=== PATIENT | female | born 1975 | race African-American/Black ===

== ENCOUNTER 2017-03-11 16:58 | Emergency (ER) | payer OTHER ==
--- NOTE | 2017-03-11 17:08 | PDOC ---
Rapid Medical Evaluation Time Seen by Provider: 03/11/17 17:06 Medical Evaluation: Allergies Allergy/AdvReac Type Severity Reaction Status Date / Time No Known Drug Allergies Allergy Verified 01/03/14 11:34 03/11/17 17:06 I have performed a brief in-person evaluation of this patient. The patient presents with a chief complaint of: with vaginal bleeding Pertinent physical exam findings: [employer]: . I have ordered the following: cbc, bmp, T&S, Bhcg, ua, urine cx, tvus The patient will proceed to the ED for further evaluation. Discharge Disposition - Diagnosis Vaginal bleeding affecting early - Referrals - Patient Instructions - Post Discharge Activity
[2017-03-11 17:22] VITALS: BP 169/103; PULSE 76; TEMP 98.1; BMI 30.6
[2017-03-11 17:54] LABS: URINE APPEARANCE SLCLOUDY; URINE BILIRUBIN NEGATIVE (NEGATIVE); URINE BLOOD 3+ (NEGATIVE); URINE COLOR YELLOW; URINE GLUCOSE (UA) NEGATIVE (NEGATIVE); URINE KETONE NEGATIVE (NEGATIVE); URINE LEUK ESTERASE NEGATIVE (NEGATIVE); URINE NITRITE NEGATIVE (NEGATIVE); URINE PROTEIN NEGATIVE (NEGATIVE); URINE UROBILINOGEN NEGATIVE mg/dL (0.2-1.0)
[2017-03-11 18:25] LABS: URINE MUCUS FEW; URINE RBC 386 /hpf (0-3); URINE WBC 1 /hpf (3-5)
[2017-03-11 19:47] LABS: BASO % 0.3 % (0-2.0); EOS # 0.1 # (0-4.5); EOS % 1.1 % (0-4.5); LYMPH # 2.6 (8-40); MCH 23.8 pg (25.7-33.7); MCHC 32.3 g/dl (32.0-36.0); MEAN CELL VOLUME 73.8 fl (80-96); MEAN PLT VOLUME 8.5 fl (7.5-11.1); MONO # 0.7 # (3.8-10.2); NEUT # 7.2 # (42.8-82.8); NEUT % 67.9 % (42.8-82.8); PLATELET COUNT 360 K/MM3 (134-434); RDW 15.1 % (11.6-15.6); WHITE BLOOD COUNT 10.6 K/mm3 (4.0-10.0)
[2017-03-11 20:04] LABS: URINE LEUK ESTERASE Negative (NEGATIVE)
--- NOTE | 2017-03-11 20:10 | PDOC ---
History of Present Illness - General History Source: Patient, Old Records Exam Limitations: No Limitations - History of Present Illness Initial Comments: 03/11/17 20:25 The patient is a 42 year old female who is currently 4 weeks , A2, with a significant past medical history of HTN and asthma, who presents to the emergency department with vaginal bleeding onset today and abdominal cramping since yesterday. She states that she had an ultrasound done 2 days ago which did not show anything because she might be too early. She reports that this is a wanted as she got her IUD removed 2 months ago. She reports that she noticed the vaginal bleeding when she went to use the bathroom, wiped and saw the blood on the toiler paper. The patient denies chest pain, shortness of breath, headache and dizziness. Denies fever, chills, nausea, vomit, diarrhea and constipation. Denies dysuria, frequency, urgency and hematuria. LMP: 02/06/2017 Allergies: None Past surgical history: None reported Social history: No alcohol, tobacco or drug use reported <Jesus Maurice - Last Filed: 03/11/17 21:05> <Lakhwinder Crow - Last Filed: 03/12/17 01:40> - General Chief Complaint: Vaginal Bleeding Stated Complaint: VAGINAL BLEEDING (4WKS ) Time Seen by Provider: 03/11/17 17:06 Past History <Jesus Maurice - Last Filed: 03/11/17 21:05> - Past Medical History Anemia: No Asthma: Yes Cancer: No Cardiac Disorders: No CVA: No COPD: No CHF: No DVT: No Dementia: No Diabetes: No GI Disorders: No Disorders: No HTN: Yes Hypercholesterolemia: No Liver Disease: No Seizures: No Thyroid Disease: No - Surgical History Abdominal Surgery: No Appendectomy: No Cardiac Surgery: No Cholecystectomy: No Lung Surgery: No Neurologic Surgery: No Orthopedic Surgery: No - Reproductive History Is Patient Now?: Yes (#): 6 Para: 3 Therapeutic (s) & number: (2) Spontaneous : 0 - Suicide/Smoking/Psychosocial Hx Smoking History: Never smoked Have you smoked in the past 12 months: No Information on smoking cessation initiated: No Hx Alcohol Use: No Drug/Substance Use Hx: No Substance Use Type: None Hx Substance Use Treatment: No <Lakhwinder Crow - Last Filed: 03/12/17 01:40> - Past Medical History Allergies/Adverse Reactions: Allergies Allergy/AdvReac Type Severity Reaction Status Date / Time No Known Drug Allergies Allergy Verified 03/11/17 17:18 Home Medications: Ambulatory Orders Metoprolol Succinate 50 mg PO DAILY 03/11/17 Vit 93/Iron Fum/Folic [ Formula Tablet] 1 each PO DAILY Review of Systems - Review of Systems Able to Perform ROS?: Yes Comments:: 03/11/17 20:25 Constitutional: No recent illness; no fever ENT: No sore throat Cardiovascular: No palpitations; no chest pain Pulmonary: No cough; no trouble breathing Gastrointestinal: (+) Abdominal cramping. No nausea; no vomiting; no diarrhea Genitourinary: (+) Vaginal bleeding. No urinary problems; no hematuria Skin: No rash Lymph system: No swollen glands Musculoskeletal: No joint swelling Neurological: No weakness; oo numbness; No Headache; no vertigo; no lightheadedness Psychiatric:No anxiety; no depression ROS: A complete review of 10 out of 10 review of systems is taken and is negative apart from what is previously mentioned below and in the HPI. <Jesus Maurice - Last Filed: 03/11/17 21:05> *Physical Exam - Vital Signs Last Vital Signs Temp Pulse Resp BP Pulse Ox 98.1 F 76 20 169/103 100 03/11/17 17:18 03/11/17 17:18 03/11/17 17:18 03/11/17 17:18 03/11/17 17:18 - Physical Exam Comments: 03/11/17 20:25 Vitals: Triage vital signs reviewed General Appearance: No acute distress, well nourished, well developed Head: Atraumatic Neck: Supple; No nuchal rigidity Chest Wall: Nontender Cardiac: Regular rate and rhythm, no murmurs, no rubs, no gallops Lungs: Clear to auscultation bilateral, good air movement bilaterally Abdomen: Soft, nondistended, normal bowel sounds, nontender to palpation Genitourinary: Rectal: Exam deferred Extremities: Full range of motion to all extremities, no cyanosis, clubbing, or edema Skin: Warm and dry, no rashes or lesions, no rash, no petechiae Neuro: AOX3; Cranial Nerves 2-12 grossly intact, Strength intact to all extremities, Sensation intact to all extremities. Psych: Normal mood, normal affect Pelvic Exam: Os is closed and there is no adnexal tenderness. <Jesus Maurice - Last Filed: 03/11/17 21:05> - Vital Signs Last Vital Signs Temp Pulse Resp BP Pulse Ox 98.1 F 76 20 169/103 100 03/11/17 17:18 03/11/17 17:18 03/11/17 17:18 03/11/17 17:18 03/11/17 17:18 <Lakhwinder Crow - Last Filed: 03/12/17 01:40> ED Treatment Course - LABORATORY CBC & Chemistry Diagram: 03/11/17 18:50 03/11/17 18:50 - ADDITIONAL ORDERS Additional order review: Laboratory Results 03/11/17 17:30 Urine Color Yellow Urine Appearance Slcloudy Urine pH 6.0 Ur Specific [place] 1.025 Urine Protein Negative Urine Glucose (UA) Negative Urine Ketones Negative Urine Blood 3+ H Urine Nitrite Negative Urine Bilirubin Negative Urine Urobilinogen Negative Ur Leukocyte Esterase Negative Urine WBC (Auto) 1 Urine RBC (Auto) 386 Ur Epithelial Cells Rare Urine Mucus Few 03/11/17 18:50 RBC 5.24 H MCV 73.8 L MCHC 32.3 RDW 15.1 MPV 8.5 Neutrophils % 67.9 Lymphocytes % 24.4 Monocytes % 6.3 Eosinophils % 1.1 Basophils % 0.3 <Jesus Maurice - Last Filed: 03/11/17 21:05> - LABORATORY CBC & Chemistry Diagram: 03/11/17 18:50 03/11/17 18:50 - ADDITIONAL ORDERS Additional order review: Laboratory Results 03/11/17 17:30 Urine Color Yellow Urine Appearance Slcloudy Urine pH 6.0 Ur Specific [place] 1.025 Urine Protein Negative Urine Glucose (UA) Negative Urine Ketones Negative Urine Blood 3+ H Urine Nitrite Negative Urine Bilirubin Negative Urine Urobilinogen Negative Ur Leukocyte Esterase Negative Urine WBC (Auto) 1 Urine RBC (Auto) 386 Ur Epithelial Cells Rare Urine Mucus Few 03/11/17 18:50 RBC 5.24 H MCV 73.8 L MCHC 32.3 RDW 15.1 MPV 8.5 Neutrophils % 67.9 Lymphocytes % 24.4 Monocytes % 6.3 Eosinophils % 1.1 Basophils % 0.3 <Lakhwinder Crow - Last Filed: 03/12/17 01:40> Medical Decision Making - Medical Decision Making 03/11/17 20:44 Well appearing, no apparent distress approximately 4-5 weeks by dates. Vaginal spotting today no abdominal pain. We'll check labs ultrasound type and screen and beta and reassess Empty uterus on transvaginal ultrasound. Serum beta hCG 20 most likely diagnosis this time is miscarriage. Patient will follow-up with her [facility] [employer] [employer] next week to ensure beta goes completely to 0. Her Rh status is positive. No indication for Hank. Very strict ectopic return instructions discussed with patient. <Lakhwinder Crow - Last Filed: 03/12/17 01:40> *DC/Admit/Observation/Transfer - Attestations Scribe Attestion: 03/11/17 20:26 Documentation prepared by Jesus Maurice, acting as medical editor for Lakhwinder Crow MD <Jesus Maurice - Last Filed: 03/11/17 21:05> <Lakhwinder Crow - Last Filed: 03/12/17 01:40> Diagnosis at time of Disposition: Vaginal bleeding affecting early - Referrals Referrals: Anthony Thompson MD [Primary Care Provider] - - Patient Instructions Printed Discharge Instructions: Miscarriage Additional Instructions: Return to ED for any severe pain heavy vaginal bleeding or for any concerns follow-up with your [facility] [employer] [facility] next week. - Post Discharge Activity
[2017-03-11 20:17] LABS: ANION GAP 6 (8-16); CALCIUM 8.8 mg/dL (8.5-10.1); CO2 28 mmol/L (21-32); GLUCOSE,RANDOM 88 mg/dL (74-106)
[2017-03-11 20:22] LABS: CREATININE 0.9 mg/dL (0.55-1.02)
== END 2017-03-11 21:39 | disposition home or self-care (01) ==
LOC: JER 16:58
DX: O26.891 Other specified pregnancy related conditions, first trimester (principal); O20.8 Other hemorrhage in early pregnancy; Z3A.01 Less than 8 weeks gestation of pregnancy
CPT/HCPCS: 36415; 76817-TC; 80048; 81003; 81015; 84702; 85025; 86850; 86900; 86901; 87086; 99281-25